=== PATIENT | female | born 1965 | race Caucasian/White ===

== ENCOUNTER 2019-04-22 07:30 | Inpatient (IN) | payer MEDICAID ==
[2019-04-21 16:52] LABS: PRE OP HEMOGLOBIN 12.3 g/dL (12.0-16.0)
[2019-04-21 16:54] LABS: BASOPHILS # (AUTO) 0.1 X10'3 (0-0.2); BASOPHILS % (AUTO) 0.7 % (0-1); EOSINOPHILS # (AUTO) 0.2 X10'3 (0-0.9); EOSINOPHILS % (AUTO) 2.1 % (0-6); LYMPHOCYTES # (AUTO) 1.8 X10'3 (1.1-4.8); LYMPHOCYTES % (AUTO) 23.9 % (21-51); MEAN CORPUSCULAR HEMOGLOBIN 30.3 PG (27.0-31.0); MEAN CORPUSCULAR HGB CONC 33.3 g/dL (33.0-36.5); MEAN CORPUSCULAR VOLUME 91.1 FL (78-98); MEAN PLATELET VOLUME 7.3 FL (7.4-10.4); MONOCYTES # (AUTO) 0.5 X10'3 (0-0.9); MONOCYTES % (AUTO) 7.3 % (2-12); NEUTROPHILS # (AUTO) 4.8 X10'3 (1.8-7.7); PRE OP HEMATOCRIT 37.1 % (35.0-45.0); PRE OP PLATELET COUNT 255 X10'3 (140-440); RED BLOOD COUNT 4.07 X10'6 (4.20-5.60); RED CELL DISTRIBUTION WIDTH 14.6 % (11.5-14.5)
[2019-04-21 17:03] LABS: ALBUMIN 3.9 G/DL (3.4-5.0); ALBUMIN/GLOBULIN RATIO 1.4 (1.1-1.5); ALKALINE PHOSPHATASE 81 IU/L (46-116); BLOOD UREA NITROGEN 16 MG/DL (7-18); BUN/CREATININE RATIO 22.2 (6.6-38.0); CALCIUM 8.9 MG/DL (8.5-10.1); CHLORIDE 103 MMOL/L (99-107); CREATININE 0.72 MG/DL (0.40-0.90); PRE OP ALT 19 U/L (30-65); PRE OP ANION GAP 6 (8-16); PRE OP AST 9 U/L (10-37); PRE OP BILIRUB, TOTAL 0.2 MG/DL (0.0-1.0); PRE OP GLUCOSE 86 MG/DL (70-104); PRE OP POTASSIUM 3.7 MMOL/L (3.4-5.1); PRE OP SODIUM 139 MMOL/L (135-145); TOTAL CARBON DIOXIDE 29.8 MMOL/L (24-32); TOTAL PROTEIN 6.7 G/DL (6.4-8.2); eGFR 84 ML/MIN
[~2019-04-22] VITALS: Ht 167.6 cm; Wt 82.6 kg
[~2019-04-22 07:30] MED LIST: IBUP-1986 PO; OXYC-511 PO; PAIN CREAM TOP
[2019-04-28] MEDS ORDERED: LORA10TA7 PO (12:30)
[2019-04-29] VITALS (20 sets, daily range): BP systolic 117–146; BP diastolic 69–89
[2019-04-29] MEDS ORDERED: LIDOcaine 1% (10mg/ml) 2ml vial ONE (05:50)
[2019-04-29] MEDS ORDERED: ketorolac trometh. 30mg/ml inj. ONE (06:39)
[2019-04-29] MEDS ORDERED: ROPIVAcaine 0.5% (5mg/ml) 30ml vial ONE ×2 (06:39→07:15)
[2019-04-29] MEDS ORDERED: tetracaine 1% (10mg/ml) pres. free inj. ONE (07:15)
[2019-04-29] MEDS ORDERED: cloNIDine hcl/PF 100mcg/ml inj ONE (07:15)
[2019-04-29] MEDS ORDERED: fentaNYL/PF 50MCG/1 ML 2ML syringe ONE (07:17)
[2019-04-29] MEDS ORDERED: MIDAZolam 1mg/ml 10ml vial ONE (07:17)
[2019-04-29] MEDS ORDERED: ringers solution, lacted 1,000 ML IV SCH ×2 (08:23→11:30)
[2019-04-29] MEDS ORDERED: ondansetron/PF 4mg/2ml inj IV PRN ×2 (08:25→09:40)
[2019-04-29] MEDS ORDERED: meperidine/PF 25mg/ml syringe IV PRN ×3 (08:25)
[2019-04-29] MEDS ORDERED: morphine 4 MG/ML inj SYRINge IV PRN ×2 (08:25)
[2019-04-29] MEDS ORDERED: proCHLORperazine 10 MG/2 ml inj IV PRN (08:25)
[2019-04-29] MEDS ORDERED: propofol inj 20 ML IV ONE ×2 (09:24)
[2019-04-29] MEDS ORDERED: magnesium hydroxide 30ml (MOM) UD suspension PO PRN (09:40)
[2019-04-29] MEDS ORDERED: diphenhydrAMINE 25mg capsule PO PRN ×2 (09:40)
[2019-04-29] MEDS ORDERED: bisacodyl 10mg suppository rectal RC PRN (09:40)
[2019-04-29] MEDS ORDERED: oxyCODONE IR 5mg (immed. release) tablet PO PRN (09:40)
[2019-04-29] MEDS ORDERED: acetaminophen 325mg tablet PO PRN (09:40)
--- NOTE | 2019-04-29 09:55 | NUR ---
Received from OR via bed, accompanied by Anesthesiologist. Report received. Initial physical assessment done and recorded.
[2019-04-29] MEDS: ROPIVAcaine 0.2%/PF PAIN PUMP 400 ML IJ SCH (10:38)
--- NOTE | 2019-04-29 11:00 | NUR ---
Discharge criteria met, report to receiving floor. Transferred to room in stable condition.
[2019-04-29] MEDS ORDERED: tranexamic acid inj. 800 MG in normal saline 100ml IV soln 100 ML IV ONE ×2 (11:30→12:30)
[2019-04-29] MEDS ORDERED: famotidine 20mg tablet PO ONE (11:30)
[2019-04-29] MEDS ORDERED: VANCOMYCIN INJ 1000 MG in NORMAL SALINE 250ml IV.SOLN IV ONE (11:30)
[2019-04-29] MEDS ORDERED: cefazolin/dext.iso 2gm/100 ML IV ONE (11:30)
[2019-04-29] MEDS: ketorolac tromethamine 15mg/ml inj. IV SCH ×2 (14:46→20:32)
[2019-04-29] MEDS: HYDROmorphone 1 mg/ml syringe IV PRN ×3 (15:10→23:16)
--- NOTE | 2019-04-29 15:34 | NUR ---
Report to Rebecca MILLS
--- NOTE | 2019-04-29 16:24 | NUR ---
WAS RETURNING DILAUDID ON HER ROOMMATE AND RETURNED IT ON HER INSTEAD. SHE DID GET THE DILAUDID.
--- NOTE | 2019-04-29 16:30 | NUR ---
Patient in room ORTHO 4022. I have received report from LINA BARBER and had the opportunity to ask questions and assume patient care.
[2019-04-29] MEDS: ceFAZolin 1GM/D5W- ADD-VANTAGE 50 ML IV SCH (17:18)
[2019-04-29] MEDS: oxyCODONE IR 5mg (immed. release) tablet PO PRN ×2 (17:19→21:22)
[2019-04-29] MEDS: potassium cl 20mEq in 1/2 NS 1,000 ML IV SCH ×2 (17:39→19:16)
[2019-04-29] MEDS ORDERED: vancomycin/NS 1 GM ADD-VANTAGE 250 ML IV SCH (20:00)
[2019-04-29] MEDS: sennosides 8.6mg tablet PO SCH (20:31)
[2019-04-29] MEDS: acetaminophen 325mg tablet PO SCH (20:32)
[2019-04-30] MEDS: ketorolac tromethamine 15mg/ml inj. IV SCH ×2 (01:25→07:48)
[2019-04-30] MEDS: ceFAZolin 1GM/D5W- ADD-VANTAGE 50 ML IV SCH (01:25)
[2019-04-30] MEDS: acetaminophen 325mg tablet PO SCH ×4 (01:26→20:01)
[2019-04-30] MEDS: oxyCODONE IR 5mg (immed. release) tablet PO PRN ×6 (01:26→22:20)
[2019-04-30] MEDS: potassium cl 20mEq in 1/2 NS 1,000 ML IV SCH ×2 (01:37→09:39)
[2019-04-30 01:52] VITALS: BP 111/72
[2019-04-30] MEDS: HYDROmorphone 1 mg/ml syringe IV PRN ×5 (04:15→20:02)
[2019-04-30 06:00] VITALS: BP 128/73
[2019-04-30 06:02] LABS: BASOPHILS % (AUTO) 0.3 % (0-1); EOSINOPHILS % (AUTO) 0 % (0-6); HEMATOCRIT 32.6 % (35.0-45.0); HEMOGLOBIN 10.8 g/dl (12.0-16.0); LYMPHOCYTES # (AUTO) 0.7 X10'3 (1.1-4.8); LYMPHOCYTES % (AUTO) 6.9 % (21-51); MEAN CORPUSCULAR HEMOGLOBIN 30.2 PG (27.0-31.0); MEAN CORPUSCULAR HGB CONC 33.2 g/dL (33.0-36.5); MEAN CORPUSCULAR VOLUME 90.9 FL (78-98); MEAN PLATELET VOLUME 7.4 FL (7.4-10.4); MONOCYTES # (AUTO) 0.7 X10'3 (0-0.9); MONOCYTES % (AUTO) 6.9 % (2-12); NEUTROPHILS # (AUTO) 8.8 X10'3 (1.8-7.7); NEUTROPHILS % (AUTO) 85.9 % (42-75); PLATELET COUNT 217 X10'3 (140-440); RED BLOOD COUNT 3.59 X10'6 (4.20-5.60); RED CELL DISTRIBUTION WIDTH 13.8 % (11.5-14.5); WHITE BLOOD COUNT 10.3 X10'3 (4.5-11.0)
--- NOTE | 2019-04-30 06:05 | NUR ---
Patient in room ORTHO 4022. I have received report from GONZÁLEZ MILLS and had the opportunity to ask questions and assume patient care.
--- NOTE | 2019-04-30 06:24 | NUR ---
Problems reprioritized. Patient report given, questions answered & plan of care reviewed with liza Allen.
[2019-04-30 07:03] LABS: ANION GAP 6 (8-16); CHLORIDE 105 MMOL/L (99-107); POTASSIUM 4.1 MMOL/L (3.5-5.1); SODIUM 138 MMOL/L (135-145); TOTAL CARBON DIOXIDE 26.9 MMOL/L (24-32)
[2019-04-30] MEDS: aspirin 325mg tablet PO SCH (07:47)
[2019-04-30] MEDS: loratadine 10mg tablet PO SCH (07:48)
[2019-04-30 10:00] VITALS: BP 110/69
[2019-04-30 14:00] VITALS: BP 126/60
--- NOTE | 2019-04-30 16:01 | NUR ---
Joint replacement consult: Pt seen by ROBBI for written/verbal high protein ed. RD reviewed high protein needs for wound healing, immune strength, high protein foods, and protein supplementation options. RD contact information provided in case of further questions. Pt agreeable to double proteins at meals including extra fish w/ lemon juice, salad salad w/ kittitian dressing at dinner tonight; dietary notified. Will continue to monitor. Addendum: 04/30/19 at [address] Amended: Links added.
[2019-04-30 18:00] VITALS: BP 119/69
--- NOTE | 2019-04-30 18:00 | NUR ---
Problems reprioritized. Patient report given, questions answered & plan of care reviewed with ALIN MILLS.
[2019-04-30] MEDS: celeCOXIB 100mg capsule PO SCH (20:01)
[2019-04-30] MEDS: sennosides 8.6mg tablet PO SCH (20:01)
[2019-04-30 22:00] VITALS: BP 105/61
[2019-05-01] MEDS: HYDROmorphone inj. 0.5 MG/0.5 ML DISP.SYRIN IV PRN ×6 (00:31→22:38)
[2019-05-01] MEDS: acetaminophen 325mg tablet PO SCH ×2 (02:00→07:41)
[2019-05-01] MEDS: oxyCODONE IR 5mg (immed. release) tablet PO PRN ×5 (03:25→19:58)
[2019-05-01 05:33] LABS: BASOPHILS # (AUTO) 0.1 X10'3 (0-0.2); BASOPHILS % (AUTO) 0.8 % (0-1); EOSINOPHILS # (AUTO) 0.1 X10'3 (0-0.9); HEMATOCRIT 29.2 % (35.0-45.0); HEMOGLOBIN 9.9 g/dl (12.0-16.0); LYMPHOCYTES # (AUTO) 1.7 X10'3 (1.1-4.8); LYMPHOCYTES % (AUTO) 25.6 % (21-51); MEAN CORPUSCULAR HEMOGLOBIN 30.7 PG (27.0-31.0); MEAN CORPUSCULAR HGB CONC 33.9 g/dL (33.0-36.5); MEAN CORPUSCULAR VOLUME 90.7 FL (78-98); MEAN PLATELET VOLUME 7.5 FL (7.4-10.4); MONOCYTES # (AUTO) 0.7 X10'3 (0-0.9); MONOCYTES % (AUTO) 10.2 % (2-12); NEUTROPHILS # (AUTO) 4.1 X10'3 (1.8-7.7); NEUTROPHILS % (AUTO) 62.4 % (42-75); PLATELET COUNT 173 X10'3 (140-440); RED BLOOD COUNT 3.21 X10'6 (4.20-5.60); RED CELL DISTRIBUTION WIDTH 14.2 % (11.5-14.5); WHITE BLOOD COUNT 6.6 X10'3 (4.5-11.0)
[2019-05-01 06:00] VITALS: BP 137/74
--- NOTE | 2019-05-01 06:05 | NUR ---
Patient in room ORTHO 4022. I have received report from ALIN MILLS and had the opportunity to ask questions and assume patient care.
[2019-05-01] MEDS: loratadine 10mg tablet PO SCH (07:41)
[2019-05-01] MEDS: celeCOXIB 100mg capsule PO SCH ×2 (07:41→19:58)
[2019-05-01] MEDS: aspirin 325mg tablet PO SCH (07:42)
--- NOTE | 2019-05-01 07:45 | NUR ---
ON-Q PUMP DC'D, TOLERATED WELL.
[2019-05-01] MEDS ORDERED: OXYC-150 PO (08:19)
[2019-05-01] MEDS ORDERED: ASPI-1264 PO (08:19)
[2019-05-01] MEDS: ROPIVAcaine 0.2%/PF PAIN PUMP 400 ML IJ SCH (08:24)
[2019-05-01] MEDS ORDERED: acetaminophen 325mg tablet PO PRN (09:40)
[2019-05-01 10:00] VITALS: BP 122/58
[2019-05-01 18:00] VITALS: BP 130/76
--- NOTE | 2019-05-01 18:10 | NUR ---
Patient in room ORTHO 4022. I have received report from LINA Allen and had the opportunity to ask questions and assume patient care.
--- NOTE | 2019-05-01 18:15 | NUR ---
Problems reprioritized. Patient report given, questions answered & plan of care reviewed with GENEVA MILLS.
[2019-05-01] MEDS: sennosides 8.6mg tablet PO SCH (19:58)
[2019-05-01 22:00] VITALS: BP 136/78
[2019-05-02] MEDS: oxyCODONE IR 5mg (immed. release) tablet PO PRN ×3 (00:42→09:55)
[2019-05-02 06:00] VITALS: BP 135/68
--- NOTE | 2019-05-02 06:15 | NUR ---
Patient in room ORTHO 4022. I have received report from GENEVA MILLS and had the opportunity to ask questions and assume patient care.
--- NOTE | 2019-05-02 06:21 | NUR ---
Problems reprioritized. Patient report given, questions answered & plan of care reviewed with LINA Allen.
[2019-05-02 06:27] LABS: BASOPHILS # (AUTO) 0.1 X10'3 (0-0.2); BASOPHILS % (AUTO) 0.8 % (0-1); EOSINOPHILS # (AUTO) 0.1 X10'3 (0-0.9); EOSINOPHILS % (AUTO) 1.6 % (0-6); HEMATOCRIT 29.9 % (35.0-45.0); HEMOGLOBIN 10.7 g/dl (12.0-16.0); LYMPHOCYTES # (AUTO) 1.4 X10'3 (1.1-4.8); LYMPHOCYTES % (AUTO) 17.6 % (21-51); MEAN CORPUSCULAR HGB CONC 35.6 g/dL (33.0-36.5); MEAN CORPUSCULAR VOLUME 89.7 FL (78-98); MEAN PLATELET VOLUME 7.5 FL (7.4-10.4); MONOCYTES # (AUTO) 0.8 X10'3 (0-0.9); MONOCYTES % (AUTO) 10.3 % (2-12); NEUTROPHILS # (AUTO) 5.5 X10'3 (1.8-7.7); NEUTROPHILS % (AUTO) 69.7 % (42-75); PLATELET COUNT 181 X10'3 (140-440); RED BLOOD COUNT 3.33 X10'6 (4.20-5.60); RED CELL DISTRIBUTION WIDTH 14.3 % (11.5-14.5); WHITE BLOOD COUNT 7.9 X10'3 (4.5-11.0)
[2019-05-02] MEDS: aspirin 325mg tablet PO SCH (07:45)
[2019-05-02] MEDS: celeCOXIB 100mg capsule PO SCH (07:45)
[2019-05-02] MEDS: loratadine 10mg tablet PO SCH (07:45)
[2019-05-02 10:00] VITALS: BP 110/57
--- NOTE | 2019-05-02 11:10 | NUR ---
DISCHARGE HOME SAFELY. ALL BELONGINGS IN POSSESSION. PATIENT VERBALIZES UNDERSTANDING OF DC INSTRUCTIONS.
== END 2019-05-02 11:10 | disposition home health service (06) | DRG 302 ==
LOC: PAS IN 04-29 05:34 → EDSTATUS 04-29 07:30 → ORTHO 4S 04-29 11:05
PROVIDERS: ADMIT Orthopaedic Surgery; ATTEND Orthopaedic Surgery
PROC: 3E0T3BZ Introduction of Anesthetic Agent into Peripheral Nerves and Plexi, Percutaneous Approach (ICD-10-PCS; 2019-04-29)
PROC: 0SRC0J9 Replacement of Right Knee Joint with Synthetic Substitute, Cemented, Open Approach (ICD-10-PCS; principal; 2019-04-29 07:11)
DX: M17.11 Unilateral primary osteoarthritis, right knee (principal); D62 Acute posthemorrhagic anemia; M21.00 Valgus deformity, not elsewhere classified, unspecified site; Z87.11 Personal history of peptic ulcer disease
CPT/HCPCS: 36415; 80051; 80053; 82948; 85025; 87070; 93005; 97110; 97116; 97161; 97530; A6455; A7000; C1713; C1758; C1776; G0378; J0690; J0735; J1170; J1885; J2250; J2704; J2795; J3010; J3370; J3490; J7030; J7120

== ENCOUNTER 2019-06-04 08:00 | Emergency (ER) | payer MEDICAID ==
[~2019-06-04] VITALS: Ht 167.6 cm; Wt 72.0 kg
[~2019-06-04 08:00] MED LIST changes: +LORA10TA7 PO; +OXYC-150 PO
[2019-06-04] MEDS ORDERED: morphine 4 MG/ML inj SYRINge IV PRN (08:25)
[2019-06-04] MEDS ORDERED: ondansetron/PF 4mg/2ml inj IV ONE (08:25)
[2019-06-04] MEDS ORDERED: normal saline 1000ML IV soln IVB ONE (08:25)
[2019-06-04] MEDS ORDERED: metoclopramide 5 mg/ml inj IV ONE (09:00)
--- NOTE | 2019-06-04 09:00 | NUR ---
PT VOMITTED APPROX 150 ML OF BROWNISH RED EMESIS, GASTROCULT POSITIVE, DR JOHNSON INFORMED OF VOMITTING AND POSITIVE GASTROCULT, PT STATES SHE HAS TO GO TO BATHROOM, GAVE SAMPLE CUP, SPOUSE ASSISTED PT TO BATHROOM.
[2019-06-04 09:06] LABS: BASOPHILS # (AUTO) 0.1 X10'3 (0-0.2); BASOPHILS % (AUTO) 0.5 % (0-1); EOSINOPHILS % (AUTO) 0.2 % (0-6); HEMATOCRIT 37.3 % (35.0-45.0); HEMOGLOBIN 12.3 g/dl (12.0-16.0); LYMPHOCYTES # (AUTO) 0.9 X10'3 (1.1-4.8); LYMPHOCYTES % (AUTO) 8.2 % (21-51); MEAN CORPUSCULAR HEMOGLOBIN 29.5 PG (27.0-31.0); MEAN CORPUSCULAR HGB CONC 33.1 g/dL (33.0-36.5); MEAN CORPUSCULAR VOLUME 89.2 FL (78-98); MEAN PLATELET VOLUME 6.9 FL (7.4-10.4); MONOCYTES # (AUTO) 0.2 X10'3 (0-0.9); MONOCYTES % (AUTO) 1.6 % (2-12); NEUTROPHILS % (AUTO) 89.5 % (42-75); PLATELET COUNT 286 X10'3 (140-440); RED BLOOD COUNT 4.18 X10'6 (4.20-5.60); RED CELL DISTRIBUTION WIDTH 13.6 % (11.5-14.5); WHITE BLOOD COUNT 11.2 X10'3 (4.5-11.0)
[2019-06-04 09:08] LABS: ALANINE AMINOTRANSFERASE 23 U/L (12-78); ALBUMIN/GLOBULIN RATIO 1.1 (1.1-1.5); ALKALINE PHOSPHATASE 92 IU/L (46-116); ANION GAP 11 (8-16); ASPARTATE AMINO TRANSFERASE 8 U/L (10-37); BILIRUBIN,TOTAL 0.5 MG/DL (0.1-1.0); BLOOD UREA NITROGEN 11 MG/DL (7-18); BUN/CREATININE RATIO 19.6 (6.6-38.0); CALCIUM 9.3 MG/DL (8.5-10.1); CHLORIDE 97 MMOL/L (99-107); CREATININE 0.56 MG/DL (0.40-0.90); GLUCOSE 134 MG/DL (70-104); LIPASE 69 U/L (73-393); POTASSIUM 3.5 MMOL/L (3.5-5.1); SODIUM 135 MMOL/L (135-145); TOTAL CARBON DIOXIDE 27.2 MMOL/L (24-32); TOTAL PROTEIN 7.6 G/DL (6.4-8.2); eGFR > 90 ML/MIN
--- NOTE | 2019-06-04 09:14 | NUR ---
PT BACK FROM BATHROOM AND THEN TAKED TO CT BY CLOTHING PRESSER PER ORDERS, SAMPLE SENT TO LAB.
[2019-06-04 09:28] LABS: URINE HCG NEGATIVE (NEG)
[2019-06-04 09:47] LABS: CLARITY,URINE CLEAR (Clear); COLOR,URINE YELLOW (Yellow); GLUCOSE, URINE NEGATIVE (Neg); KETONES,URINE 15 mg/dl (Neg); LEUKOCYTE ESTERASE ,URINE NEGATIVE (Neg); NITRITES, URINE POSITIVE (Neg); OCCULT BLOOD,URINE SMALL (Neg); PH,URINE 7.5 (4.8-8.0); PROTEIN,URINE NEGATIVE (Neg); UROBILINOGEN,URINE 0.2 E.U/dL (0.2-1.0)
[2019-06-04 10:01] LABS: UA COLLECTION TYPE CLN CATCH MIDSTREAM
[2019-06-04 10:03] LABS: BACTERIA,URINE 2+ /HPF (Neg); SQUAMOUS EPITHELIAL CELL,UR FEW /LPF (FEW); WBC,URINE 0-4 /HPF (0-4)
[2019-06-04] MEDS ORDERED: SULF1TAB49 PO (10:29)
[2019-06-04] MEDS ORDERED: CefTRIAXone/D5W-Rocephin 1gm 50 ML IV ONE (10:30)
[2019-06-04] MEDS ORDERED: HYDR-4383 PO (10:39)
[2019-06-04] MEDS ORDERED: ONDA4TAB6 PO (10:39)
[2019-06-04] MEDS ORDERED: morphine 4 MG/ML inj SYRINge IV ONE (10:40)
[2019-06-04 11:52] VITALS: BP 142/81
[2019-06-04 16:17] LABS: GASTRIC OCCULT BLOOD POSITIVE (Neg)
== END 2019-06-04 11:54 | disposition home or self-care (01) ==
LOC: ER 08:01
DX: N39.0 Urinary tract infection, site not specified (principal); R11.2 Nausea with vomiting, unspecified; R10.84 Generalized abdominal pain; Z98.890 Other specified postprocedural states; Z90.710 Acquired absence of both cervix and uterus; Z79.899 Other long term (current) drug therapy
CPT/HCPCS: 36415; 74176; 80053; 81001; 81025; 82271; 83690; 85025; 87077; 87088; 87186; 96361; 96365; 96375; 96376; 99284; J0696; J2270; J2405; J2765; J7030

== ENCOUNTER 2019-06-11 17:15 | Emergency (ER) | payer MEDICAID ==
[~2019-06-11] VITALS: Ht 167.6 cm; Wt 85.0 kg
[~2019-06-11 17:15] MED LIST changes: +HYDR-4383 PO; +ONDA4TAB6 PO; +SULF1TAB49 PO
[2019-06-11 17:47] LABS: BASOPHILS # (AUTO) 0.1 X10'3 (0-0.2); BASOPHILS % (AUTO) 0.7 % (0-1); EOSINOPHILS # (AUTO) 0.2 X10'3 (0-0.9); EOSINOPHILS % (AUTO) 1.8 % (0-6); HEMATOCRIT 41.5 % (35.0-45.0); HEMOGLOBIN 13.8 g/dl (12.0-16.0); LYMPHOCYTES # (AUTO) 0.8 X10'3 (1.1-4.8); LYMPHOCYTES % (AUTO) 8.9 % (21-51); MEAN CORPUSCULAR HGB CONC 33.2 g/dL (33.0-36.5); MEAN CORPUSCULAR VOLUME 90.3 FL (78-98); MEAN PLATELET VOLUME 6.9 FL (7.4-10.4); MONOCYTES # (AUTO) 0.3 X10'3 (0-0.9); MONOCYTES % (AUTO) 2.9 % (2-12); NEUTROPHILS # (AUTO) 7.8 X10'3 (1.8-7.7); NEUTROPHILS % (AUTO) 85.7 % (42-75); PLATELET COUNT 375 X10'3 (140-440); RED BLOOD COUNT 4.59 X10'6 (4.20-5.60); RED CELL DISTRIBUTION WIDTH 13.6 % (11.5-14.5)
[2019-06-11 18:01] LABS: ALANINE AMINOTRANSFERASE 22 U/L (12-78); ALBUMIN 4.3 G/DL (3.4-5.0); ALBUMIN/GLOBULIN RATIO 1.2 (1.1-1.5); ALKALINE PHOSPHATASE 102 IU/L (46-116); ANION GAP 12 (8-16); ASPARTATE AMINO TRANSFERASE 13 U/L (10-37); BILIRUBIN,TOTAL 0.4 MG/DL (0.1-1.0); BLOOD UREA NITROGEN 9 MG/DL (7-18); BUN/CREATININE RATIO 13.4 (6.6-38.0); CHLORIDE 102 MMOL/L (99-107); CREATININE 0.67 MG/DL (0.40-0.90); GLUCOSE 133 MG/DL (70-104); LIPASE 240 U/L (73-393); SODIUM 137 MMOL/L (135-145); TOTAL CARBON DIOXIDE 22.6 MMOL/L (24-32); eGFR > 90 ML/MIN
--- NOTE | 2019-06-11 18:01 | NUR ---
BROWN EMESIS BAG 200CC AT BEDSIDE.
[2019-06-11 18:14] LABS: URINE HCG NEGATIVE (NEG)
[2019-06-11 18:17] LABS: GLUCOSE, URINE NEGATIVE (Neg); KETONES,URINE 15 mg/dl (Neg); LEUKOCYTE ESTERASE ,URINE NEGATIVE (Neg); NITRITES, URINE NEGATIVE (Neg); OCCULT BLOOD,URINE TRACE-INTACT (Neg); PH,URINE 5.5 (4.8-8.0); PROTEIN,URINE TRACE mg/dl (Neg); UROBILINOGEN,URINE 0.2 E.U/dL (0.2-1.0)
[2019-06-11 18:18] LABS: UA COLLECTION TYPE CLN CATCH MIDSTREAM
[2019-06-11 18:19] LABS: CLARITY,URINE CLEAR (Clear); COLOR,URINE DARK YELLOW (Yellow)
[2019-06-11 18:24] LABS: BACTERIA,URINE NONE SEEN /HPF (Neg); SQUAMOUS EPITHELIAL CELL,UR FEW /LPF (FEW); WBC,URINE 0-4 /HPF (0-4)
[2019-06-11] MEDS ORDERED: LORazepam 2 mg/ml vial IV ONE (18:50)
[2019-06-11] MEDS ORDERED: metoclopramide 5 mg/ml inj IV ONE (18:50)
[2019-06-11] MEDS ORDERED: morphine 4 MG/ML inj SYRINge IV ONE (18:50)
--- NOTE | 2019-06-11 19:00 | NUR ---
This patient is awake and well oriented. She complains of being very tired. Patient intermittently sleeps. Patient up to bathroom, a small bowel movement, normal in color per . Patient returns to sleep once in room.
--- NOTE | 2019-06-11 19:39 | NUR ---
Patient to CT for an ABD/Pelvis with no contrast. Tech is transporting.
--- NOTE | 2019-06-11 20:47 | NUR ---
Patient sleeping. Awaiting CT results. is at bedside.
[2019-06-11] MEDS ORDERED: famotidine 20mg tablet PO ONE (21:10)
[2019-06-11] MEDS ORDERED: HYDROcodone/acetaminophen 10/325mg tab PO ONE (21:10)
[2019-06-11] MEDS ORDERED: pantoprazole 40 MG vial IV ONE (21:10)
[2019-06-11] MEDS ORDERED: ondansetron/PF 4mg/2ml inj IV ONE (21:10)
[2019-06-11] MEDS ORDERED: HYDR-4353 PO (21:22)
[2019-06-11] MEDS ORDERED: AMOX-580 PO (21:22)
[2019-06-11] MEDS ORDERED: ONDA8TAB6 PO (21:22)
[2019-06-11] MEDS ORDERED: ESOMEPRAZOLE 40 MG VIAL IV ONE (21:25)
--- NOTE | 2019-06-11 21:56 | NUR ---
RX meds given. IV dc'd cath intact. Instructions reviewed with patient and . Tech takes patient to car in wheelchair. Patient denies nausea. Abdominal discomfort is gone. Disch to home.
[2019-06-11 21:57] VITALS: BP 138/74
== END 2019-06-11 22:01 | disposition home or self-care (01) ==
LOC: ER 17:15
DX: K52.9 Noninfective gastroenteritis and colitis, unspecified (principal); K56.7 Ileus, unspecified; F10.99 Alcohol use, unspecified with unspecified alcohol-induced disorder; Z90.710 Acquired absence of both cervix and uterus; Z98.890 Other specified postprocedural states; Z79.899 Other long term (current) drug therapy; Y90.9 Presence of alcohol in blood, level not specified
CPT/HCPCS: 36415; 74176; 80053; 81001; 81025; 83690; 85025; 96374; 96375; 99284; J2060; J2270; J2405; J2765

== ENCOUNTER 2020-04-27 05:44 | Inpatient (IN) | payer MEDICAID ==
[2020-04-20 17:08] LABS: BASOPHILS # (AUTO) 0.1 X10'3 (0-0.2); BASOPHILS % (AUTO) 0.8 % (0-1); EOSINOPHILS # (AUTO) 0.1 X10'3 (0-0.9); EOSINOPHILS % (AUTO) 2.2 % (0-6); LYMPHOCYTES # (AUTO) 1.5 X10'3 (1.1-4.8); LYMPHOCYTES % (AUTO) 23.3 % (21-51); MEAN CORPUSCULAR HEMOGLOBIN 29.7 PG (27.0-31.0); MEAN CORPUSCULAR VOLUME 90.1 FL (78-98); MEAN PLATELET VOLUME 7.1 FL (7.4-10.4); MONOCYTES # (AUTO) 0.5 X10'3 (0-0.9); MONOCYTES % (AUTO) 7.2 % (2-12); NEUTROPHILS # (AUTO) 4.2 X10'3 (1.8-7.7); NEUTROPHILS % (AUTO) 66.5 % (42-75); PRE OP HEMATOCRIT 36.4 % (35.0-45.0); PRE OP PLATELET COUNT 252 X10'3 (140-440); RED BLOOD COUNT 4.04 X10'6 (4.20-5.60)
[2020-04-20 17:14] LABS: ALBUMIN 4.1 G/DL (3.4-5.0); ALBUMIN/GLOBULIN RATIO 1.4 (1.1-1.5); ALKALINE PHOSPHATASE 106 IU/L (46-116); BLOOD UREA NITROGEN 16 MG/DL (7-18); BUN/CREATININE RATIO 27.6 (6.6-38.0); CALCIUM 9.8 MG/DL (8.5-10.1); CHLORIDE 108 MMOL/L (99-107); CREATININE 0.58 MG/DL (0.40-0.90); PRE OP ALT 16 U/L (30-65); PRE OP ANION GAP 6 (8-16); PRE OP AST 14 U/L (10-37); PRE OP BILIRUB, TOTAL 0.2 MG/DL (0.0-1.0); PRE OP GLUCOSE 93 MG/DL (70-104); PRE OP POTASSIUM 3.8 MMOL/L (3.4-5.1); PRE OP SODIUM 144 MMOL/L (135-145); TOTAL CARBON DIOXIDE 29.8 MMOL/L (24-32); eGFR > 90 ML/MIN
[~2020-04-27] VITALS: Ht 167.6 cm; Wt 76.2 kg
[2020-04-27] VITALS (18 sets, daily range): BP systolic 92–130; BP diastolic 59–89
[~2020-04-27 05:44] MED LIST changes: +CYCL5TAB PO; +GABA300C PO; -HYDR-4383 PO; -ONDA4TAB6 PO; -OXYC-150 PO; -PAIN CREAM TOP; +PROM12.512 PO; -SULF1TAB49 PO; +ceFAZolin 2gm in dextrose, iso 50 ML IV ONE; +famotidine 20mg tablet PO ONE; +ringers solution, lacted 1,000 ML IV SCH; +tranexamic acid inj. 760 MG in normal saline 100ml IV soln 100 ML IV ONE; +vancomycin 1,500 MG in NS 500ml IV soln IV ONE
[2020-04-27] MEDS ORDERED: LIDOcaine 1% (10mg/ml) 2ml vial ONE (06:03)
[2020-04-27] MEDS ORDERED: ketorolac trometh. 30mg/ml inj. ONE (07:06)
[2020-04-27] MEDS ORDERED: ROPIVAcaine 0.5% (5mg/ml) 30ml vial ONE (07:06)
[2020-04-27] MEDS ORDERED: tetracaine 1% (10mg/ml) pres. free inj. ONE (08:42)
[2020-04-27] MEDS ORDERED: morphine /PF 1mg/ml 10ml inj. ONE (08:43)
[2020-04-27] MEDS ORDERED: midazolam 2 mg/2 ml injection ONE (08:44)
[2020-04-27] MEDS ORDERED: BUPIVAcaine/dex-water/PF 7.5 mg/ml 2ml ampul ONE (09:00)
[2020-04-27] MEDS ORDERED: propofol inj 20 ML IV ONE ×4 (09:25→11:23)
[2020-04-27] MEDS ORDERED: naloxone 2mg/2ml inj 2 MG in normal saline 500ml IV soln 500 ML IV PRN (10:14)
[2020-04-27] MEDS ORDERED: ringers solution, lacted 1,000 ML IV SCH (10:14)
[2020-04-27] MEDS ORDERED: ROPIVAcaine 0.2% (10 MG/5 ML) BOLUS INJECTION ADDCANAL PRN (10:15)
[2020-04-27] MEDS ORDERED: meperidine/PF 25mg/ml syringe IV PRN ×3 (10:15)
[2020-04-27] MEDS ORDERED: morphine 4 MG/ML inj SYRINge IV PRN (10:15)
[2020-04-27] MEDS ORDERED: morphine 2 MG/ML inj. syringe IV PRN (10:15)
[2020-04-27] MEDS ORDERED: proCHLORperazine 10 MG/2 ml inj IV PRN (10:15)
[2020-04-27] MEDS ORDERED: diphenhydrAMINE 50 mg/ml inj IV PRN (10:15)
[2020-04-27] MEDS ORDERED: ondansetron/PF 4mg/2ml inj IV PRN ×3 (10:15→12:05)
[2020-04-27] MEDS ORDERED: acetaminophen 1,000mg/100ml IV 100 ML IV PRN (10:15)
[2020-04-27] MEDS ORDERED: 0.9 % SODIUM CHLORIDE 10 ML VIAL ONE ×2 (10:27)
[2020-04-27] MEDS ORDERED: ePHEDrine 50MG/ML INJ. ONE (10:27)
[2020-04-27] MEDS ORDERED: phenylephrine 10mg/ml inj. ONE (10:27)
[2020-04-27] MEDS ORDERED: ROPIVAcaine 0.2%/PF PUMP/bolus 550 ML ADDCANAL SCH (11:30)
--- NOTE | 2020-04-27 12:00 | NUR ---
PATIENT ARRIVED TO [facility] VIA BED WITH DR EDGAR AT BEDSIDE AND REPORT RECIEVED. PATIENT A&OX4, DENIES PAIN, V/S WNL, NEUROVASCULAR CHECKS INTACT, 18G PIV LUE , DRESSING TO LEFT KNEE EVER DRESSING CDI W/ COLD POWDER PACK AND W/ SCD ON. F/C DRAINING CLEAR YELLOW URINE. SENSATION T-10.
[2020-04-27] MEDS ORDERED: HYDROmorphone 1 mg/ml syringe IV PRN (12:05)
[2020-04-27] MEDS ORDERED: oxyCODONE/APAP 10/325mg tablet PO PRN (12:05)
[2020-04-27] MEDS ORDERED: cyclobenzaprine 10mg tablet PO PRN (12:05)
[2020-04-27] MEDS ORDERED: oxyCODONE IR 5mg (immed. release) tablet PO PRN (12:05)
[2020-04-27] MEDS ORDERED: diphenhydrAMINE 25mg capsule PO PRN (12:05)
[2020-04-27] MEDS ORDERED: PROMETHAZINE HCL PO PRN (12:05)
[2020-04-27] MEDS ORDERED: magnesium hydroxide 30ml (MOM) UD suspension PO PRN (12:05)
[2020-04-27] MEDS ORDERED: acetaminophen 325mg tablet PO PRN (12:05)
[2020-04-27] MEDS ORDERED: HYDROmorphone inj. 0.5 MG/0.5 ML DISP.SYRIN IV PRN (12:05)
[2020-04-27] MEDS ORDERED: bisacodyl 10mg suppository rectal RC PRN (12:05)
--- NOTE | 2020-04-27 12:40 | NUR ---
Breaking primary RN Elizabeth- Received report from LINA Rabago from recovery. Awaiting patient arrival to room 354a.
--- NOTE | 2020-04-27 12:46 | NUR ---
received report from liza hoover who received report from liza braga in recovery
--- NOTE | 2020-04-27 12:48 | NUR ---
Problems reprioritized. Patient report given, questions answered & plan of care reviewed with LINA Johnson .
[2020-04-27] MEDS ORDERED: non-formulary drug (Ibuprofen 1 TAB) PO SCH (13:00)
--- NOTE | 2020-04-27 13:10 | NUR ---
ATIENT A&OX4, DENIES PAIN, V/S WNL, NEUROVASCULAR CHECKS INTACT, 18G PIV LUE , DRESSING TO LEFT KNEE EVER DRESSING CDI W/ COLD POWDER PACK AND W/ SCD ON. F/C DRAINING CLEAR YELLOW URINE. SENSATION T-11. PATIENT TAKEN TO 354A WITH ALL BELONGINGS AND HOOKED UP TO MONITORS IN ROOM AND REPORT GIVEN TO MARCELA MILLS WHO HAS TAKEN OVER PATIENT CARE.
[2020-04-27] MEDS: diphenhydrAMINE 25mg capsule PO PRN ×2 (13:29→20:15)
[2020-04-27] MEDS: acetaminophen 325mg tablet PO SCH ×2 (13:30→20:04)
[2020-04-27] MEDS ORDERED: tranexamic acid inj. 800 MG in normal saline 100ml IV soln 100 ML IV ONE (15:00)
[2020-04-27] MEDS: gabapentin 300mg capsule PO SCH (16:18)
[2020-04-27] MEDS: oxyCODONE IR 5mg (immed. release) tablet PO PRN ×2 (16:24→20:16)
[2020-04-27] MEDS: ceFAZolin 1GM/D5W- ADD-VANTAGE 50 ML IV SCH (17:24)
--- NOTE | 2020-04-27 18:00 | NUR ---
Patient in room ORTHO 4012. I have received report from Elizabeth and had the opportunity to ask questions and assume patient care.
--- NOTE | 2020-04-27 18:32 | NUR ---
gave report to liza perez
[2020-04-27] MEDS: potassium cl 20mEq in 1/2 NS 1,000 ML IV SCH (19:57)
[2020-04-27] MEDS ORDERED: vancomycin/NS 1 GM ADD-VANTAGE 250 ML IV SCH (20:00)
[2020-04-27] MEDS ORDERED: sennosides 8.6mg tablet PO SCH (21:00)
--- NOTE | 2020-04-28 01:00 | NUR ---
Problems reprioritized. Patient report given, questions answered & plan of care reviewed with Linda Patient moved up to 4th Floor.
[2020-04-28 01:30] VITALS: BP 101/62
[2020-04-28] MEDS: oxyCODONE IR 5mg (immed. release) tablet PO PRN ×5 (01:33→17:40)
[2020-04-28] MEDS: acetaminophen 325mg tablet PO SCH ×2 (01:46→08:40)
[2020-04-28] MEDS: gabapentin 300mg capsule PO SCH ×3 (01:46→16:32)
[2020-04-28] MEDS: ceFAZolin 1GM/D5W- ADD-VANTAGE 50 ML IV SCH (01:52)
[2020-04-28] MEDS: potassium cl 20mEq in 1/2 NS 1,000 ML IV SCH ×3 (05:03→12:05)
[2020-04-28 05:07] LABS: BASOPHILS % (AUTO) 0.6 % (0-1); EOSINOPHILS # (AUTO) 0.2 X10'3 (0-0.9); EOSINOPHILS % (AUTO) 3.1 % (0-6); HEMATOCRIT 28.4 % (35.0-45.0); HEMOGLOBIN 9.3 g/dl (12.0-16.0); LYMPHOCYTES % (AUTO) 17.2 % (21-51); MEAN CORPUSCULAR HEMOGLOBIN 29.8 PG (27.0-31.0); MEAN CORPUSCULAR HGB CONC 32.7 g/dL (33.0-36.5); MEAN PLATELET VOLUME 7.1 FL (7.4-10.4); MONOCYTES # (AUTO) 0.6 X10'3 (0-0.9); MONOCYTES % (AUTO) 9.8 % (2-12); NEUTROPHILS # (AUTO) 3.9 X10'3 (1.8-7.7); NEUTROPHILS % (AUTO) 69.3 % (42-75); PLATELET COUNT 187 X10'3 (140-440); RED BLOOD COUNT 3.11 X10'6 (4.20-5.60); RED CELL DISTRIBUTION WIDTH 14.4 % (11.5-14.5); WHITE BLOOD COUNT 5.7 X10'3 (4.5-11.0)
[2020-04-28 05:22] LABS: ANION GAP 4 (8-16); CHLORIDE 107 MMOL/L (99-107); POTASSIUM 4.3 MMOL/L (3.5-5.1); SODIUM 140 MMOL/L (135-145); TOTAL CARBON DIOXIDE 28.9 MMOL/L (24-32)
[2020-04-28 06:00] VITALS: BP 134/71
[2020-04-28] MEDS ORDERED: loratadine 10mg tablet PO SCH (08:00)
[2020-04-28] MEDS ORDERED: aspirin 325mg tablet PO SCH (08:30)
[2020-04-28] MEDS ORDERED: ONQPUMP ADDCANAL (10:38)
[2020-04-28] MEDS ORDERED: ASPI-1 PO (10:38)
[2020-04-28 11:00] VITALS: BP 92/52
--- NOTE | 2020-04-28 12:47 | NUR ---
Joint replacement consult: Pt sleeping unable to wake during RD visit; written high protein ed w/ RD contact information left at pt bedside. Addendum: 04/28/20 at [address] Amended: Links added.
[2020-04-29] MEDS ORDERED: acetaminophen 325mg tablet PO PRN (12:05)
== END 2020-04-28 17:51 | disposition home health service (06) | DRG 302 ==
LOC: PAS 05:44 → EDSTATUS 07:30 → SUR 3N 12:05 → ORTHO 4S 04-28 01:22
PROVIDERS: ADMIT Orthopaedic Surgery; ATTEND Orthopaedic Surgery
PROC: 3E0T3BZ Introduction of Anesthetic Agent into Peripheral Nerves and Plexi, Percutaneous Approach (ICD-10-PCS; 2020-04-27)
PROC: 8E0YXBZ Computer Assisted Procedure of Lower Extremity (ICD-10-PCS; 2020-04-27)
PROC: 8E0Y0CZ Robotic Assisted Procedure of Lower Extremity, Open Approach (ICD-10-PCS; 2020-04-27)
PROC: 0SRD069 Replacement of Left Knee Joint with Oxidized Zirconium on Polyethylene Synthetic Substitute, Cemented, Open Approach (ICD-10-PCS; principal; 2020-04-27 09:00)
DX: M17.12 Unilateral primary osteoarthritis, left knee (principal); D62 Acute posthemorrhagic anemia; M21.062 Valgus deformity, not elsewhere classified, left knee; Z87.11 Personal history of peptic ulcer disease; Z79.899 Other long term (current) drug therapy
CPT/HCPCS: 36415; 80051; 80053; 82948; 85025; 87081; 97110; 97162; 97530; A4215; A6454; A7000; C1713; C1758; C1776; G0378; J0690; J1885; J2001; J2250; J2270; J2370; J2405; J2704; J2795; J3370; J3480; J3490; J7040; J7120; Q0163

== ENCOUNTER 2022-03-29 10:30 | Inpatient (IN) | payer MEDICAID ==
[2022-03-24 11:17] LABS: BASOPHILS # (AUTO) 0.1 X10'3 (0-0.2); BASOPHILS % (AUTO) 0.7 % (0-1); EOSINOPHILS # (AUTO) 0.2 X10'3 (0-0.9); EOSINOPHILS % (AUTO) 2.9 % (0-6); LYMPHOCYTES # (AUTO) 1.7 X10'3 (1.1-4.8); LYMPHOCYTES % (AUTO) 23.4 % (21-51); MEAN CORPUSCULAR HEMOGLOBIN 28.8 PG (27.0-31.0); MEAN CORPUSCULAR HGB CONC 32.7 g/dL (33.0-36.5); MEAN CORPUSCULAR VOLUME 88.3 FL (78-98); MEAN PLATELET VOLUME 7.3 FL (7.4-10.4); MONOCYTES # (AUTO) 0.6 X10'3 (0-0.9); MONOCYTES % (AUTO) 8.8 % (2-12); NEUTROPHILS # (AUTO) 4.5 X10'3 (1.8-7.7); NEUTROPHILS % (AUTO) 64.2 % (42-75); PRE OP HEMATOCRIT 35.8 % (35.0-45.0); PRE OP HEMOGLOBIN 11.7 g/dL (12.0-16.0); PRE OP PLATELET COUNT 264 X10'3 (140-440); RED BLOOD COUNT 4.06 X10'6 (4.20-5.60)
[2022-03-24 11:21] LABS: CLARITY,URINE CLEAR (Clear); COLOR,URINE YELLOW (Yellow); GLUCOSE, URINE NEGATIVE (Neg); KETONES,URINE NEGATIVE (Neg); LEUKOCYTE ESTERASE ,URINE NEGATIVE (Neg); NITRITES, URINE NEGATIVE (Neg); OCCULT BLOOD,URINE NEGATIVE (Neg); PROTEIN,URINE NEGATIVE (Neg); UA COLLECTION TYPE CLN CATCH MIDSTREAM; UROBILINOGEN,URINE 0.2 E.U/dL (0.2-1.0)
[2022-03-24 11:51] LABS: ALBUMIN 3.9 G/DL (3.4-5.0); ALBUMIN/GLOBULIN RATIO 1.1 (1.1-1.5); ALKALINE PHOSPHATASE 94 IU/L (46-116); BLOOD UREA NITROGEN 24 MG/DL (7-18); CHLORIDE 103 MMOL/L (99-107); PRE OP ALT 16 U/L (30-65); PRE OP ANION GAP 8 (8-16); PRE OP AST 13 U/L (10-37); PRE OP BILIRUB, TOTAL 0.3 MG/DL (0.0-1.0); PRE OP GLUCOSE 86 MG/DL (70-104); PRE OP POTASSIUM 4.3 MMOL/L (3.4-5.1); PRE OP SODIUM 137 MMOL/L (135-145); TOTAL CARBON DIOXIDE 25.8 MMOL/L (24-32); TOTAL PROTEIN 7.3 G/DL (6.4-8.2); eGFR 74 ML/MIN
[2022-03-29] VITALS (23 sets, daily range): BP systolic 113–207; BP diastolic 54–116
[~2022-03-29] VITALS: Ht 167.6 cm; Wt 89.8 kg
[~2022-03-29 10:30] MED LIST changes: +BUPIVAcaine 0.5% inj/PF 0 ML ONE; +HYDR-3973 PO; -IBUP-1986 PO; +MULT-1085 PO; +NITR0.4T51 SL; -OXYC-511 PO; +ceFAZolin 1000mg inj ONE; -ceFAZolin 2gm in dextrose, iso 50 ML IV ONE; +ceFAZolin inj. 2,000 MG in dextrose 5%-water 100 ML IV ONE; -tranexamic acid inj. 760 MG in normal saline 100ml IV soln 100 ML IV ONE; -vancomycin 1,500 MG in NS 500ml IV soln IV ONE
[2022-03-29] MEDS ORDERED: ketamine 50mg/5ml syringe ONE (13:47)
[2022-03-29] MEDS ORDERED: midazolam 1 mg/ML 2ml injection ONE (13:47)
[2022-03-29] MEDS ORDERED: BUPIVACAINE liposomal/PF 13.3 MG/ML vial IM ONE (13:48)
[2022-03-29] MEDS ORDERED: BUPIVAcaine 0.5% inj/PF 30 ML ONE (13:48)
[2022-03-29] MEDS ORDERED: fentaNYL /PF 50mcg/ml 5ml ampule ONE (13:49)
[2022-03-29] MEDS ORDERED: neostigmine methylsulfate 1 MG/ML 10ml vial ONE (14:05)
[2022-03-29] MEDS ORDERED: sevoflurane 250ml liquid IH ONE (14:05)
[2022-03-29] MEDS ORDERED: glycopyrrolate 0.2mg/ml inj ONE (14:05)
[2022-03-29] MEDS ORDERED: rocuronium 10mg/ml inj IV ONE (14:49)
[2022-03-29] MEDS ORDERED: ondansetron/PF 4mg/2ml inj ONE (14:50)
[2022-03-29] MEDS ORDERED: LIDOcaine 2% (20mg/ml) 5ml vial ONE (14:50)
[2022-03-29] MEDS ORDERED: propofol inj 20 ML IV ONE (14:50)
[2022-03-29] MEDS ORDERED: dexamethasone sod phosphate 4mg/ml inj. ONE (14:50)
[2022-03-29] MEDS ORDERED: sugammadex 200mg/2ml injection IV ONE (14:50)
[2022-03-29] MEDS ORDERED: ePHEDrine 50MG/ML INJ. ONE (14:50)
[2022-03-29] MEDS ORDERED: acetaminophen 1,000mg/100ml IV 100 ML IV ONE (15:27)
--- NOTE | 2022-03-29 15:37 | NUR ---
Received from OR via BED, accompanied by Anesthesiologist DR GAMEZ and report given by Anesthesiolgist. V/S ELEVATED PATIENT IS QUITE PAINFUL. IV IN LEFT HAND. F/C. LR AT 100 10 LITERS ON MASK. KARTIK CIFUENTES WITH MIKE UNDER BINDER. Addendum: 03/29/22 at 1831 by Candice Moran RN Amended: Links added.
[2022-03-29] MEDS ORDERED: labetalol 5mg/ml 20ml inj. IV PRN (15:45)
[2022-03-29] MEDS ORDERED: ondansetron/PF 4mg/2ml inj IV PRN (15:45)
[2022-03-29] MEDS ORDERED: HYDROmorphone/PF 0.2 MG/ML SYRINGE IV PRN (15:45)
[2022-03-29] MEDS ORDERED: ringers solution, lacted 1,000 ML IV SCH (15:45)
[2022-03-29] MEDS ORDERED: meperidine/PF 25mg/ml syringe IV PRN ×2 (15:45)
[2022-03-29] MEDS: hydrALAZINE 20mg/ml inj. IV PRN ×3 (15:54→17:28)
[2022-03-29] MEDS: HYDROmorphone/PF 0.2 MG/ML SYRINGE IV PRN ×2 (16:12→16:19)
[2022-03-29] MEDS ORDERED: LORazepam 2 mg/ml vial IV STA (16:16)
[2022-03-29] MEDS ORDERED: LORazepam 2 mg/ml vial ONE (16:20)
[2022-03-29] MEDS ORDERED: HYDROMORPHONE IV SCH ×2 (16:30→16:35)
[2022-03-29] MEDS ORDERED: NORMAL SALINE IV SCH ×2 (16:30→16:35)
[2022-03-29] MEDS ORDERED: naloxone 0.4 mg/ml inj IV PRN (16:40)
[2022-03-29] MEDS ORDERED: HYDROmorph/NS 0.2 mg/ml PCA 100 ML IV SCH (17:00)
[2022-03-29] MEDS ORDERED: magnesium 2GM in 50ml NS 50 ML IV PRN (17:35)
[2022-03-29] MEDS ORDERED: acetaminophen 325mg tablet PO PRN (17:35)
[2022-03-29] MEDS ORDERED: magnesium hydroxide 30ml (MOM) UD suspension PO PRN (17:35)
[2022-03-29] MEDS ORDERED: magnesium Cl slow-release 64mg tablet PO PRN (17:35)
[2022-03-29] MEDS ORDERED: POTASSIUM BICARB 20meq eff tab 20 MEQ TABLET.EFF PO PRN ×2 (17:35)
[2022-03-29] MEDS ORDERED: potassium CL 10mEq/100ml bag 100 ML IV PRN (17:35)
[2022-03-29] MEDS ORDERED: LORazepam 2 mg/ml vial IV PRN (17:35)
[2022-03-29] MEDS ORDERED: magnesium 4gm in 100ml NS 100 ML IV PRN (17:35)
[2022-03-29] MEDS ORDERED: hydrALAZINE 20mg/ml inj. IV PRN (17:35)
[2022-03-29] MEDS: HYDROmorph/NS 0.2 mg/ml PCA 100 ML IV SCH ×3 (17:56→23:00)
--- NOTE | 2022-03-29 19:07 | NUR ---
PATIENT MEETS DISCHARGE CRITERIA. VSS. PATIENT PAIN UNDER CONTROL WITH CADD. TOOK PATIENT TO THE FLOOR SET UP V/S LOWERED BED GAVE HER A CALL LIGHT. GAVE REPORT TO LINA LEWIS. Addendum: 03/29/22 at 1920 by Candice Moran RN Amended: Links added.
--- NOTE | 2022-03-29 19:30 | NUR ---
Pt arrived, VS machine attached, moaning in pain reminded pt to use her CAN SLIDER button. at bedside. pt calm eyes closed Addendum: 03/29/22 at 3 by Georgina Purvis RN Amended: Links added.
[2022-03-29] MEDS: docusate sod 100mg capsule PO SCH ×2 (20:00)
[2022-03-29] MEDS: K and/or MAG REPLACEMENT MC SCH (20:00)
[2022-03-29] MEDS: sennosides/docusate sodium tablet PO SCH (20:00)
[2022-03-29] MEDS: normal saline 1000ml 1,000 ML IV SCH (20:27)
[2022-03-30] MEDS: HYDROmorph/NS 0.2 mg/ml PCA 100 ML IV SCH ×5 (01:00→09:00)
--- NOTE | 2022-03-30 01:00 | NUR ---
Pt increasing pain. Pt reminded to use pain button, but has not had relief, Increased CADD per orders to demand dose 0.3 with co-signketty Tabor Rn Addendum: 03/30/22 at 0252 by Georgina Purvis RN Amended: Links added.
[2022-03-30 02:00] VITALS: BP_SYST 148; BP_DIAS 75; BP_DIAS 77
[2022-03-30] MEDS: normal saline 1000ml 1,000 ML IV SCH ×3 (03:35→23:35)
--- NOTE | 2022-03-30 03:49 | NUR ---
0.3 Demand Dose for CADD helping as pt has slept, and snoring when nurse does rounds. Addendum: 03/30/22 at 0350 by Georgina Purvis RN Amended: Links added.
[2022-03-30 06:00] VITALS: BP 135/80
[2022-03-30 07:43] LABS: BASOPHILS % (AUTO) 0.3 % (0-1); EOSINOPHILS % (AUTO) 0 % (0-6); HEMATOCRIT 38.8 % (35.0-45.0); HEMOGLOBIN 12.6 g/dl (12.0-16.0); LYMPHOCYTES # (AUTO) 0.6 X10'3 (1.1-4.8); LYMPHOCYTES % (AUTO) 5.2 % (21-51); MEAN CORPUSCULAR HEMOGLOBIN 28.6 PG (27.0-31.0); MEAN CORPUSCULAR HGB CONC 32.5 g/dL (33.0-36.5); MEAN CORPUSCULAR VOLUME 88.1 FL (78-98); MEAN PLATELET VOLUME 7.7 FL (7.4-10.4); MONOCYTES # (AUTO) 0.6 X10'3 (0-0.9); MONOCYTES % (AUTO) 4.9 % (2-12); NEUTROPHILS # (AUTO) 11.2 X10'3 (1.8-7.7); NEUTROPHILS % (AUTO) 89.6 % (42-75); PLATELET COUNT 276 X10'3 (140-440); RED CELL DISTRIBUTION WIDTH 15.2 % (11.5-14.5); WHITE BLOOD COUNT 12.5 X10'3 (4.5-11.0)
[2022-03-30 07:44] LABS: ALBUMIN 3.4 G/DL (3.4-5.0); ANION GAP 6 (8-16); BLOOD UREA NITROGEN 12 MG/DL (7-18); BUN/CREATININE RATIO 15.2 (6.6-38.0); CALCIUM 8.5 MG/DL (8.5-10.1); CHLORIDE 105 MMOL/L (99-107); CREATININE 0.79 MG/DL (0.40-0.90); GLUCOSE 144 MG/DL (70-104); MAGNESIUM 1.8 MG/DL (1.5-2.4); POTASSIUM 4.2 MMOL/L (3.5-5.1); SODIUM 138 MMOL/L (135-145); TOTAL CARBON DIOXIDE 26.8 MMOL/L (24-32); eGFR 75 ML/MIN
[2022-03-30] MEDS: LORazepam 2 mg/ml vial IV PRN (07:54)
[2022-03-30] MEDS: K and/or MAG REPLACEMENT MC SCH ×2 (08:00→20:00)
[2022-03-30] MEDS: docusate sod 100mg capsule PO SCH ×4 (08:00→20:09)
[2022-03-30] MEDS: sennosides/docusate sodium tablet PO SCH ×2 (08:55→20:09)
[2022-03-30] MEDS: enoxaparin 40mg/0.4ml syringe SUBCUT SCH (08:56)
[2022-03-30 10:00] VITALS: BP 162/78
[2022-03-30] MEDS ORDERED: cyclobenzaprine 10mg tablet PO PRN (10:25)
[2022-03-30] MEDS ORDERED: proMETHazine 25mg tablet PO PRN (10:25)
[2022-03-30] MEDS ORDERED: nitroGLYCERIN 0.4mg SUBLingual tab SL PRN (10:25)
[2022-03-30] MEDS ORDERED: morphine 2 MG/ML inj. syringe IV PRN (11:05)
[2022-03-30] MEDS: morphine 4 MG/ML inj SYRINge IV PRN ×3 (11:24→20:14)
[2022-03-30] MEDS ORDERED: PCA WASTE DOCUMENTATION MC SCH (12:15)
[2022-03-30 14:00] VITALS: BP 120/64
[2022-03-30] MEDS: ondansetron/PF 4mg/2ml inj IV PRN (14:29)
[2022-03-30] MEDS: gabapentin 300mg capsule PO SCH (17:03)
[2022-03-30] MEDS: HYDROcodone/acetaminophen 10/325mg tab PO PRN (17:51)
[2022-03-30 18:00] VITALS: BP 142/61
--- NOTE | 2022-03-30 19:06 | NUR ---
Patient in room ORTHO 4015. I have received report from LINA Rodriguez and had the opportunity to ask questions and assume patient care. Patient resting with eyes closed in no apparent distress.
[2022-03-30 22:54] VITALS: BP 128/57
[2022-03-31] MEDS: gabapentin 300mg capsule PO SCH ×4 (00:09→23:38)
[2022-03-31] MEDS: HYDROcodone/acetaminophen 10/325mg tab PO PRN ×2 (00:15→05:50)
[2022-03-31] MEDS: normal saline 1000ml 1,000 ML IV SCH ×3 (01:29→22:21)
[2022-03-31] MEDS: morphine 4 MG/ML inj SYRINge IV PRN (03:14)
[2022-03-31 05:30] VITALS: BP 153/85
--- NOTE | 2022-03-31 05:42 | NUR ---
MESSAGE: [id number] Post op day 2Tumor removal, lysis of adhesions, DR Negro. Patient has a temporal temp of 101.6, Axillary of 100.6, Do you want blood cultures? Also patient has not received any antibiotics since surgery Simone 1200
[2022-03-31] MEDS ORDERED: cefTRIAXone 1g/NS 100ml IVPB 100 ML IV ONE (05:55)
--- NOTE | 2022-03-31 06:41 | NUR ---
Problems reprioritized. Patient report given, questions answered & plan of care reviewed with LINA Clifton.
--- NOTE | 2022-03-31 06:45 | NUR ---
Patient in room ORTHO 4015. I have received report from LINA Nichols and had the opportunity to ask questions and assume patient care.
[2022-03-31 07:14] LABS: BASOPHILS % (AUTO) 0.2 % (0-1); EOSINOPHILS % (AUTO) 0 % (0-6); HEMOGLOBIN 11.6 g/dl (12.0-16.0); LYMPHOCYTES # (AUTO) 0.5 X10'3 (1.1-4.8); LYMPHOCYTES % (AUTO) 10.7 % (21-51); MEAN CORPUSCULAR HEMOGLOBIN 28.4 PG (27.0-31.0); MEAN CORPUSCULAR HGB CONC 32.1 g/dL (33.0-36.5); MEAN CORPUSCULAR VOLUME 88.3 FL (78-98); MEAN PLATELET VOLUME 7.1 FL (7.4-10.4); MONOCYTES # (AUTO) 0.2 X10'3 (0-0.9); MONOCYTES % (AUTO) 4.4 % (2-12); NEUTROPHILS # (AUTO) 3.9 X10'3 (1.8-7.7); NEUTROPHILS % (AUTO) 84.7 % (42-75); PLATELET COUNT 232 X10'3 (140-440); RED BLOOD COUNT 4.08 X10'6 (4.20-5.60); RED CELL DISTRIBUTION WIDTH 15.5 % (11.5-14.5); WHITE BLOOD COUNT 4.6 X10'3 (4.5-11.0)
[2022-03-31] MEDS ORDERED: HYDROmorph/NS 0.2 mg/ml PCA 100 ML IV SCH (07:30)
[2022-03-31] MEDS ORDERED: naloxone 0.4 mg/ml inj IV PRN (07:30)
[2022-03-31 07:38] LABS: ALBUMIN 2.7 G/DL (3.4-5.0); ANION GAP 9 (8-16); BLOOD UREA NITROGEN 11 MG/DL (7-18); BUN/CREATININE RATIO 13.9 (6.6-38.0); CALCIUM 8.4 MG/DL (8.5-10.1); CHLORIDE 106 MMOL/L (99-107); CREATININE 0.79 MG/DL (0.40-0.90); GLUCOSE 136 MG/DL (70-104); MAGNESIUM 1.8 MG/DL (1.5-2.4); POTASSIUM 3.8 MMOL/L (3.5-5.1); SODIUM 137 MMOL/L (135-145); TOTAL CARBON DIOXIDE 22.3 MMOL/L (24-32); eGFR 75 ML/MIN
[2022-03-31 10:00] VITALS: BP 166/100
[2022-03-31] MEDS: PCA WASTE DOCUMENTATION MC SCH (11:21)
[2022-03-31] MEDS: K and/or MAG REPLACEMENT MC SCH ×2 (11:21→19:27)
[2022-03-31] MEDS: loratadine 10mg tablet PO SCH (11:30)
[2022-03-31] MEDS: multivitamins, therapeutics tablet PO SCH (11:30)
[2022-03-31] MEDS: cefTRIAXone 1g/NS 100ml IVPB 100 ML IV SCH (11:30)
[2022-03-31] MEDS: sennosides/docusate sodium tablet PO SCH ×2 (11:30→19:32)
[2022-03-31] MEDS: docusate sod 100mg capsule PO SCH ×2 (11:30→19:32)
[2022-03-31] MEDS: enoxaparin 40mg/0.4ml syringe SUBCUT SCH (11:31)
[2022-03-31] MEDS: HYDROmorph/NS 0.2 mg/ml PCA 100 ML IV SCH ×6 (12:35→23:00)
[2022-03-31] MEDS ORDERED: mag hydrox/Alum hydrox/simeth 30ml oral suspension PO PRN (12:50)
[2022-03-31] MEDS: mag hydrox/Alum hydrox/simeth 30ml oral suspension PO PRN ×2 (12:59→19:31)
[2022-03-31 14:00] VITALS: BP 146/79
[2022-03-31 17:00] VITALS: BP 140/81
--- NOTE | 2022-03-31 18:10 | NUR ---
Problems reprioritized. Patient report given, questions answered & plan of care reviewed with LINA Acevedo.
--- NOTE | 2022-03-31 19:25 | NUR ---
Patient in room ORTHO 4015. I have received report from LINA Clifton and had the opportunity to ask questions and assume patient care.
[2022-03-31] MEDS: ondansetron/PF 4mg/2ml inj IV PRN (20:58)
[2022-03-31 22:00] VITALS: BP 112/64
[2022-04-01] MEDS: HYDROmorph/NS 0.2 mg/ml PCA 100 ML IV SCH ×5 (01:00→09:00)
[2022-04-01] MEDS: metoclopramide 5 mg/ml inj IV PRN ×2 (01:03→12:34)
--- NOTE | 2022-04-01 02:00 | NUR ---
Pt. has been very nauseated and vomited [address] Araujo has been notified ,she gave us a order for Reglan Q 8 PRN.Pt. has been taking a lot of Ice chips and using per pain Pump more often.I made her not to have ice or water and she was able to rest until 0600.We will continue with pt. care.She walked twice last night ,I heard a bowel sounds on my assessment ,she did not passed gas yet.
[2022-04-01 06:00] VITALS: BP 180/92
[2022-04-01 06:22] LABS: BASOPHILS % (AUTO) 0.1 % (0-1); EOSINOPHILS % (AUTO) 0 % (0-6); HEMATOCRIT 32.6 % (35.0-45.0); HEMOGLOBIN 10.9 g/dl (12.0-16.0); LYMPHOCYTES # (AUTO) 0.5 X10'3 (1.1-4.8); LYMPHOCYTES % (AUTO) 6.3 % (21-51); MEAN CORPUSCULAR HEMOGLOBIN 29.3 PG (27.0-31.0); MEAN CORPUSCULAR HGB CONC 33.4 g/dL (33.0-36.5); MEAN CORPUSCULAR VOLUME 87.7 FL (78-98); MEAN PLATELET VOLUME 7.7 FL (7.4-10.4); MONOCYTES # (AUTO) 0.5 X10'3 (0-0.9); MONOCYTES % (AUTO) 6.8 % (2-12); NEUTROPHILS # (AUTO) 6.5 X10'3 (1.8-7.7); NEUTROPHILS % (AUTO) 86.8 % (42-75); PLATELET COUNT 254 X10'3 (140-440); RED BLOOD COUNT 3.72 X10'6 (4.20-5.60); RED CELL DISTRIBUTION WIDTH 15.1 % (11.5-14.5); WHITE BLOOD COUNT 7.5 X10'3 (4.5-11.0)
[2022-04-01 06:35] LABS: ALBUMIN 2.3 G/DL (3.4-5.0); ANION GAP 7 (8-16); BLOOD UREA NITROGEN 14 MG/DL (7-18); BUN/CREATININE RATIO 18.7 (6.6-38.0); CALCIUM 8.7 MG/DL (8.5-10.1); CHLORIDE 102 MMOL/L (99-107); CREATININE 0.75 MG/DL (0.40-0.90); GLUCOSE 130 MG/DL (70-104); MAGNESIUM 2.2 MG/DL (1.5-2.4); POTASSIUM 3.5 MMOL/L (3.5-5.1); SODIUM 137 MMOL/L (135-145); TOTAL CARBON DIOXIDE 27.8 MMOL/L (24-32); eGFR 79 ML/MIN
--- NOTE | 2022-04-01 06:41 | NUR ---
Problems reprioritized. Patient report given, questions answered & plan of care reviewed with LINA Connor.
--- NOTE | 2022-04-01 06:49 | NUR ---
Patient in room ORTHO 4015. I have received report from Kristina MILLS and had the opportunity to ask questions and assume patient care.
[2022-04-01] MEDS: K and/or MAG REPLACEMENT MC SCH ×2 (07:35→20:00)
[2022-04-01] MEDS: ondansetron/PF 4mg/2ml inj IV PRN (07:48)
[2022-04-01] MEDS: enoxaparin 40mg/0.4ml syringe SUBCUT SCH (07:49)
[2022-04-01] MEDS: gabapentin 300mg capsule PO SCH ×3 (08:00→23:52)
[2022-04-01] MEDS: multivitamins, therapeutics tablet PO SCH (08:00)
[2022-04-01] MEDS: cefTRIAXone 1g/NS 100ml IVPB 100 ML IV SCH (08:01)
[2022-04-01 09:51] VITALS: BP 144/90
[2022-04-01] MEDS: loratadine 10mg tablet PO SCH (10:18)
[2022-04-01] MEDS: morphine 4 MG/ML inj SYRINge IV PRN ×4 (10:18→23:54)
[2022-04-01] MEDS: sennosides/docusate sodium tablet PO SCH ×2 (10:19→19:26)
[2022-04-01] MEDS: docusate sod 100mg capsule PO SCH ×2 (10:28→19:26)
--- NOTE | 2022-04-01 10:36 | NUR ---
PAGER ID: [phone] MESSAGE: [phone] re: Trudy Malloy in [id number]. Pt vomiting this am and thinks its the Dilaudid CADD. Would like to discontinue and try the morphine again.
[2022-04-01 15:41] VITALS: BP 147/75
[2022-04-01] MEDS: PCA WASTE DOCUMENTATION MC SCH (16:25)
[2022-04-01] MEDS: normal saline 1000ml 1,000 ML IV SCH (16:33)
[2022-04-01 18:00] VITALS: BP 127/67
--- NOTE | 2022-04-01 18:00 | NUR ---
Patient in room ORTHO 4015. I have received report from LINA Connor and had the opportunity to ask questions and assume patient care.
[2022-04-01] MEDS: oxyCODONE/APAP 10/325mg tablet PO PRN (18:41)
[2022-04-01 22:00] VITALS: BP 125/64
[2022-04-01] MEDS: metoclopramide 5 mg/ml inj IV SCH (22:19)
[2022-04-02] MEDS: normal saline 1000ml 1,000 ML IV SCH ×2 (01:37→12:56)
[2022-04-02] MEDS: oxyCODONE/APAP 10/325mg tablet PO PRN ×4 (01:37→23:57)
[2022-04-02] MEDS: metoclopramide 5 mg/ml inj IV SCH ×4 (02:43→19:30)
[2022-04-02 06:00] VITALS: BP 138/80
--- NOTE | 2022-04-02 06:19 | NUR ---
Problems reprioritized. Patient report given, questions answered & plan of care reviewed with LINA Colin.
--- NOTE | 2022-04-02 07:03 | NUR ---
Patient in room ORTHO 4015A. I have received report from LINA BEAN & JOSE RAFAEL RICHARD and had the opportunity to ask questions and assume patient care.
--- NOTE | 2022-04-02 07:59 | NUR ---
Initial: Pt s/p exploratory laparotomy, lysis of adhesions, and small bowel resection this admit per EMR. Currently NPO/ice chips and pt has nausea and vomiting per documentation. Recommend advancing to Low Fiber diet once medically indicated. [facility] 03/29 receiving routine bowel care. Limited nutrition interventions at this time, will continue to monitor. Recs; 1. Advance to Low fiber diet as medically indicated 2. Monitor need for ONS upon diet advancement 3. Bowel care per MD 4. Weekly wts Addendum: 04/02/22 at [address] Amended: Links added.
[2022-04-02] MEDS: docusate sod 100mg capsule PO SCH ×2 (08:00→19:31)
[2022-04-02] MEDS: sennosides/docusate sodium tablet PO SCH ×2 (08:00→19:31)
[2022-04-02] MEDS: K and/or MAG REPLACEMENT MC SCH ×2 (08:00→20:00)
[2022-04-02] MEDS: enoxaparin 40mg/0.4ml syringe SUBCUT SCH (08:30)
[2022-04-02] MEDS: multivitamins, therapeutics tablet PO SCH (08:31)
[2022-04-02] MEDS: loratadine 10mg tablet PO SCH (08:31)
[2022-04-02] MEDS: gabapentin 300mg capsule PO SCH ×3 (08:31→23:56)
[2022-04-02] MEDS: cefTRIAXone 1g/NS 100ml IVPB 100 ML IV SCH (08:38)
[2022-04-02] MEDS: morphine 4 MG/ML inj SYRINge IV PRN ×4 (08:39→21:30)
[2022-04-02 10:00] VITALS: BP 148/73
[2022-04-02 10:27] LABS: BASOPHILS % (AUTO) 0.2 % (0-1); EOSINOPHILS # (AUTO) 0.2 X10'3 (0-0.9); EOSINOPHILS % (AUTO) 3.1 % (0-6); HEMATOCRIT 27.2 % (35.0-45.0); LYMPHOCYTES # (AUTO) 0.5 X10'3 (1.1-4.8); LYMPHOCYTES % (AUTO) 7.6 % (21-51); MEAN CORPUSCULAR HEMOGLOBIN 28.9 PG (27.0-31.0); MEAN CORPUSCULAR HGB CONC 33.2 g/dL (33.0-36.5); MEAN PLATELET VOLUME 7.2 FL (7.4-10.4); MONOCYTES # (AUTO) 0.4 X10'3 (0-0.9); MONOCYTES % (AUTO) 6.8 % (2-12); NEUTROPHILS # (AUTO) 5.1 X10'3 (1.8-7.7); NEUTROPHILS % (AUTO) 82.3 % (42-75); PLATELET COUNT 193 X10'3 (140-440); RED BLOOD COUNT 3.12 X10'6 (4.20-5.60); RED CELL DISTRIBUTION WIDTH 14.7 % (11.5-14.5); WHITE BLOOD COUNT 6.1 X10'3 (4.5-11.0)
[2022-04-02 10:31] LABS: ALBUMIN 1.9 G/DL (3.4-5.0); ANION GAP 8 (8-16); BLOOD UREA NITROGEN 15 MG/DL (7-18); BUN/CREATININE RATIO 25.9 (6.6-38.0); CALCIUM 8.1 MG/DL (8.5-10.1); CHLORIDE 104 MMOL/L (99-107); CREATININE 0.58 MG/DL (0.40-0.90); GLUCOSE 100 MG/DL (70-104); MAGNESIUM 2.1 MG/DL (1.5-2.4); SODIUM 139 MMOL/L (135-145); TOTAL CARBON DIOXIDE 26.6 MMOL/L (24-32); eGFR > 90 ML/MIN
[2022-04-02] MEDS ORDERED: potassium CL 10mEq/100ml bag 100 ML IV PRN (12:25)
[2022-04-02] MEDS ORDERED: POTASSIUM BICARB 20meq eff tab 20 MEQ TABLET.EFF PO PRN (12:25)
[2022-04-02] MEDS ORDERED: magnesium Cl slow-release 64mg tablet PO PRN (12:25)
[2022-04-02] MEDS ORDERED: magnesium 4gm in 100ml NS 100 ML IV PRN (12:25)
[2022-04-02] MEDS ORDERED: magnesium 2GM in 50ml NS 50 ML IV PRN (12:25)
[2022-04-02] MEDS: POTASSIUM BICARB 20meq eff tab 20 MEQ TABLET.EFF PO PRN ×3 (13:12→21:50)
--- NOTE | 2022-04-02 17:03 | NUR ---
PATIENT REQUESTED A FREQUENCY CHANGE IN PAIN MEDS, CURRENT: PERCOCET Q6, MORPHINE Q4. DR BINGHAM AWAITING CALL BACK
[2022-04-02 18:00] VITALS: BP 149/72
--- NOTE | 2022-04-02 19:09 | NUR ---
Problems reprioritized. Patient report given, questions answered & plan of care reviewed with LINA TERRY.
[2022-04-02 22:00] VITALS: BP 168/78
[2022-04-03] MEDS: metoclopramide 5 mg/ml inj IV SCH ×4 (02:23→19:27)
[2022-04-03] MEDS: morphine 4 MG/ML inj SYRINge IV PRN ×3 (02:24→14:44)
[2022-04-03] MEDS: oxyCODONE/APAP 10/325mg tablet PO PRN ×5 (05:42→23:01)
--- NOTE | 2022-04-03 05:55 | NUR ---
SHIFT SUMMARY: PATIENT MEDICATED THROUGH THE NIGHT ALTERNATING WITH PERCOCET AND MORPHINE. PAIN CONTROLLED AND WAS ABLE TO GET SOME REST. UP TO VOID, WITH A SMALL BM X1 AND IS PAINFUL WITH MOVEMENT. ENCOURAGED TO AMBULATE FREQUENTLY TODAY. LAB HERE TO CHECK K+ LEVEL AFTER REPLACEMENT LAST NIGHT. REPORT TO EARLY SHIFT RN.
[2022-04-03 06:00] VITALS: BP 136/66
--- NOTE | 2022-04-03 06:39 | NUR ---
Problems reprioritized. Patient report given, questions answered & plan of care reviewed with TYLER MILLS.
[2022-04-03 06:46] LABS: BASOPHILS % (AUTO) 0.4 % (0-1); EOSINOPHILS # (AUTO) 0.3 X10'3 (0-0.9); EOSINOPHILS % (AUTO) 3.6 % (0-6); HEMATOCRIT 27.1 % (35.0-45.0); HEMOGLOBIN 9.1 g/dl (12.0-16.0); LYMPHOCYTES # (AUTO) 0.6 X10'3 (1.1-4.8); LYMPHOCYTES % (AUTO) 8.1 % (21-51); MEAN CORPUSCULAR HEMOGLOBIN 29.1 PG (27.0-31.0); MEAN CORPUSCULAR HGB CONC 33.5 g/dL (33.0-36.5); MEAN CORPUSCULAR VOLUME 86.9 FL (78-98); MEAN PLATELET VOLUME 6.8 FL (7.4-10.4); MONOCYTES # (AUTO) 0.5 X10'3 (0-0.9); MONOCYTES % (AUTO) 5.7 % (2-12); NEUTROPHILS # (AUTO) 6.6 X10'3 (1.8-7.7); NEUTROPHILS % (AUTO) 82.2 % (42-75); PLATELET COUNT 210 X10'3 (140-440); RED BLOOD COUNT 3.12 X10'6 (4.20-5.60); RED CELL DISTRIBUTION WIDTH 14.9 % (11.5-14.5)
[2022-04-03] MEDS: normal saline 1000ml 1,000 ML IV SCH ×2 (06:47→09:34)
[2022-04-03 07:02] LABS: ANION GAP 4 (8-16); BLOOD UREA NITROGEN 10 MG/DL (7-18); BUN/CREATININE RATIO 17.2 (6.6-38.0); CALCIUM 7.8 MG/DL (8.5-10.1); CHLORIDE 103 MMOL/L (99-107); CREATININE 0.58 MG/DL (0.40-0.90); GLUCOSE 127 MG/DL (70-104); POTASSIUM 3.5 MMOL/L (3.5-5.1); SODIUM 135 MMOL/L (135-145); TOTAL CARBON DIOXIDE 28.2 MMOL/L (24-32); eGFR > 90 ML/MIN
[2022-04-03] MEDS: K and/or MAG REPLACEMENT MC SCH ×2 (08:00→20:00)
[2022-04-03] MEDS: loratadine 10mg tablet PO SCH (08:00)
[2022-04-03] MEDS: multivitamins, therapeutics tablet PO SCH (08:00)
[2022-04-03] MEDS: enoxaparin 40mg/0.4ml syringe SUBCUT SCH (09:21)
[2022-04-03] MEDS: sennosides/docusate sodium tablet PO SCH ×2 (09:21→19:27)
[2022-04-03] MEDS: gabapentin 300mg capsule PO SCH ×3 (09:22→19:27)
[2022-04-03] MEDS: cefTRIAXone 1g/NS 100ml IVPB 100 ML IV SCH (09:22)
[2022-04-03] MEDS: docusate sod 100mg capsule PO SCH ×2 (09:22→19:27)
[2022-04-03 10:00] VITALS: BP 163/86
[2022-04-03] MEDS: LORazepam 2 mg/ml vial IV PRN (11:24)
--- NOTE | 2022-04-03 11:28 | NUR ---
The patient is under the impression from the doctor that she wouldn't be in any pain after surgery. This am when rounding with Dr. Anderson I eduicated the patient I would be back in. I then was pulled aside and educated by the charge, her went to the [employer] this am, to complain that her medication wasn't given every two hours. Currently there is Morphine and percocet ordered every four hours prn. I just went in to give the medication on the second hour after the morphine and the patient was sleeping, on a nonverbal scale no pain medication should be given, I gave her percocet and ativan per her request to stay on track.
[2022-04-03 14:00] VITALS: BP 169/100
--- NOTE | 2022-04-03 17:10 | NUR ---
patient sleeping, work to offer pain medication per request.
[2022-04-03 18:00] VITALS: BP 170/92
[2022-04-03 22:00] VITALS: BP 151/84
[2022-04-04] MEDS: metoclopramide 5 mg/ml inj IV SCH ×2 (01:05→08:56)
[2022-04-04] MEDS: oxyCODONE/APAP 10/325mg tablet PO PRN ×2 (05:33→12:32)
[2022-04-04 06:00] VITALS: BP 154/82
[2022-04-04 06:33] LABS: MAGNESIUM 1.5 MG/DL (1.5-2.4); POTASSIUM 3.2 MMOL/L (3.5-5.1)
--- NOTE | 2022-04-04 06:35 | NUR ---
Patient in room ORTHO 4015A. I have received report from LINA MINA and had the opportunity to ask questions and assume patient care.
[2022-04-04] MEDS: docusate sod 100mg capsule PO SCH (08:00)
[2022-04-04] MEDS: K and/or MAG REPLACEMENT MC SCH (08:00)
[2022-04-04] MEDS: sennosides/docusate sodium tablet PO SCH (08:00)
[2022-04-04] MEDS: enoxaparin 40mg/0.4ml syringe SUBCUT SCH (08:56)
[2022-04-04] MEDS: loratadine 10mg tablet PO SCH (08:56)
[2022-04-04] MEDS: gabapentin 300mg capsule PO SCH (08:56)
[2022-04-04] MEDS: multivitamins, therapeutics tablet PO SCH (08:56)
[2022-04-04] MEDS: morphine 4 MG/ML inj SYRINge IV PRN (08:56)
[2022-04-04] MEDS: cefTRIAXone 1g/NS 100ml IVPB 100 ML IV SCH (08:57)
[2022-04-04 10:00] VITALS: BP 132/79
--- NOTE | 2022-04-04 10:59 | NUR ---
I spoke with patient she said Dr. Varma said okay to stay another day. I paged Dr. Anderson regarding the Discharge order, if the patient is staying or going. Waiting to find out.
--- NOTE | 2022-04-04 12:24 | NUR ---
Late note, both MD's said patient can go home. Dr. Anderson said she can use her norco at home for pain control, but patient wants me to ask for percoset anyway. So I did. Other choudhary patient being discharged, Macey case liner said she would help with DC if needed. Patient said she did not have ride and Macey said she can use her partnership ride. But patient eventually said would pick her up.
--- NOTE | 2022-04-04 12:47 | NUR ---
I spoke with patient about discharge. She stated she felt she was being inappropriately discharged and that she needed percoset. I said again that Dr. Anderson wanted her to take the norco and that they do not always prescribe more narcotics because of interactions. also is upset with discharge stating that he has to work tonight and doesn't have time for this. I told LINA Colin that patient stated she was going 5to call Dr. Negro herself if she didn't get percoset. LINA Colin said she would call Dr. Stone as well. Dr Anderson just called and said he would send percoset in.
--- NOTE | 2022-04-04 12:49 | NUR ---
PATIENT STABLE AND APPROPRIATE FOR DISCHARGE, IV REMOVED, EDUCATION GIVEN, NEW MEDS E-SCRIPTED TO PREFERRED PHARMACY, WALKER GIVEN TO PATIENT BY SHONDA, PATIENT TAKEN TO LOBBY BY WHEELCHAIR TO AN AWAITING CAR WHERE WILL TAKE PATIENT HOME
[2022-04-04] MEDS ORDERED: OXYC-150 PO (12:52)
== END 2022-04-04 12:49 | disposition home or self-care (01) | DRG 230 ==
LOC: PAS 10:30 → ORTHO 4S 17:35
PROVIDERS: ADMIT Family Medicine; ATTEND Surgery
PROC: 0DS90ZZ Reposition Duodenum, Open Approach (ICD-10-PCS; 2022-03-29)
PROC: 0DB80ZZ Excision of Small Intestine, Open Approach (ICD-10-PCS; principal; 2022-03-29 14:05)
DX: K56.51 Intestinal adhesions [bands], with partial obstruction (principal); E87.6 Hypokalemia; Z96.652 Presence of left artificial knee joint; F41.9 Anxiety disorder, unspecified; Z20.822 Contact with and (suspected) exposure to COVID-19; R50.9 Fever, unspecified; G89.4 Chronic pain syndrome; I10 Essential (primary) hypertension; Z80.8 Family history of malignant neoplasm of other organs or systems; Z90.710 Acquired absence of both cervix and uterus; Z90.49 Acquired absence of other specified parts of digestive tract
CPT/HCPCS: 36415; 71045; 80048; 80053; 81003; 82948; 83605; 83735; 84132; 84443; 85025; 87040; 87081; 97110; 97116; 97161; 97530; A4618; A7000; C1758; C9290; G0378; J0131; J0360; J0690; J0696; J1100; J1170; J1650; J2060; J2175; J2250; J2270; J2405; J2704; J2710; J2765; J3010; J3490; J7030; J7060; J7120; S0020; U0003; U0005

== ENCOUNTER 2025-06-13 13:24 | Emergency (ER) | payer BC, MEDICAID ==
[~2025-06-13] VITALS: Ht 167.6 cm; Wt 76.4 kg
[~2025-06-13 13:24] MED LIST changes: -BUPIVAcaine 0.5% inj/PF 0 ML ONE; +CYCL-920 PO; -CYCL5TAB PO; +OXYC-150 PO; -ceFAZolin 1000mg inj ONE; -ceFAZolin inj. 2,000 MG in dextrose 5%-water 100 ML IV ONE; -famotidine 20mg tablet PO ONE; -ringers solution, lacted 1,000 ML IV SCH
[2025-06-13 13:26] VITALS: TEMP 98.6
[2025-06-13] MEDS ORDERED: BUPR1FIL3 SL (15:56)
--- NOTE | 2025-06-13 15:58 | Physician Documentation ---
HPI ~ General Chief Complaint: Medication Request Stated Complaint: WITHDRAWALS Time Seen by MD: 15:45 OK to notify your PCP?: Yes Primary Medical Doctor: erika bolaños [facility] Source: patient Mode of Arrival: POV Exam Limitations: no limitations History of Present Illness HPI Comments 30-year-old female presents requesting refill of her Suboxone. She states last dose was and she missed her appointment [facility]. Medication Reconciliation Allergies: Coded Allergies: No Known Allergies (Unverified , 06/13/25) Scheduled Buprenorphine Hcl/Naloxone Hcl (Suboxone 8 Mg-2 Mg Sl Film), 1 STRIP SL BID Gabapentin (Neurontin), 1 CAP PO Q8H, (Reported) Loratadine (Loratadine), 1 TAB PO DAILY, (Reported) Multivitamin (Multi Vitamin Daily), 1 TAB PO DAILY, (Reported) Scheduled PRN Cyclobenzaprine HCl (Cyclobenzaprine HCl), 1 TAB PO TID PRN for muscle spasms, (Reported) Hydrocodone Bit/Acetaminophen (Hydrocodone-Apap 10-325 Tablet), 1 TAB PO Q6H PRN for pain, (Reported) Nitroglycerin SL* (Nitrostat SL*), 1 TAB SL Q5MIN PRN for Chest pain Q5min PRNx3-call MD, (Reported) Oxycodone HCl/Acetaminophen (Percocet 10-325 mg Tablet), 1 TAB PO TID PRN PRN for pain Promethazine Hcl (Phenergan), 1 TAB PO BID PRN for nausea/vomiting, (Reported) Past Medical History Past Medical History: No Pertinent History Past Surgical History: cancer surgery, hysterectomy, orthopedic surgeries Alcohol Use: Occasionally Drug Use: none Lives with: Spouse Lives In: Home Review of Systems All Other Systems at this time: Reviewed and Negative Physical Exam Physical Exam Vital Signs: RN Vital Signs have been reviewed: Yes, Temperature: 98.6, Source: Oral, Heart Rate: 83, Respiratory Rate: 18, BP: 163/94, Pulse Oximetry: 98, Weight: 76.360 Pulse Oximetry Reflects: adequate oxygenation Physical Exam General: Alert, no distress. HEENT: No injection, moist mucous membranes. Neck: Full range of motion. Respiratory: No respiratory distress, equal chest rise and fall. Chest: No accessory muscle use. Cardiovascular: Regular rate and rhythm. Gastrointestinal: Nondistended. Extremities: Normal range of motion, no deformity. Neurologic: Oriented x4. Psychiatric: Normal mood and affect. Skin: Normal color, warm and dry. Progress Results/Orders Results/Orders Completed Orders - DEIRDRE RIVER Buprenorphine/Naloxone Sl Film (Suboxone (06/13/25 15:59) Medications Received in ER Medications (Trade) Dose Ordered Sig/Laura Route PRN Reason Start Time Stop Time Status Last Admin Dose Admin (Suboxone 8MG-2MG SL film) 1 film ONCE STAT SL 06/13/25 15:59 06/13/25 16:04 DC 06/13/25 16:15 1 FILM Vital Signs 06/13/25 06/13/25 13:26 16:09 Temp 98.6 Pulse 83 74 Resp 18 16 B/P (MAP) 163/94 148/87 Pulse Ox 98 99 Medical Decision Making Additional info obtained from: old records Findings She has plans to call the [facility] 1st thing Sunday but just need s help getting through the weekend. By gave a 1 time dose here in the department as well as a prescription for to films as she takes them twice a day for tomorrow to get her through till Sunday. I discussed this case with Dr. Arias who recommends that this would be appropriate since it is the weekend and the Suboxone clinic is closed. She should follow up as directed at the Suboxone clinic Sunday and return back here for any new or worsening symptoms. Differential Dx:Considerations: Include: Adverse circumstances, Economic, Medication refill, Medication non-compliance Departure Disposition: 01 HOME / SELF CARE / HOMELESS Impression: Primary Impression: Encounter for medication refill Condition: Stable Discharge Instructions: Medicine Refill at the Emergency Department Additional Instructions: Please follow up with the Sub[facility]one Clinic 1st thing Sunday. I have given you 1 dose while here in the department and a prescription for 2 doses to take for tomorrow. Referrals: NO PRIMARY CARE PROVIDER (PCP) Prescriptions Buprenorphine Hcl/Naloxone Hcl (Suboxone 8 Mg-2 Mg Sl Film) 8 Mg-2 Mg Film 1 STRIP SL BID for 1 Day, #2 STRIP Prov: DEIRDRE RIVER 06/13/25 Education Educated: Patient Educated regarding: diagnosis, treatment, prognosis, need for follow up Additional Comment Medical Screen Exam This patient recieved a medical screening examination. After reviewing the individual's medical complaints with presenting symptoms and performing an appropriate physical examination, it was determined that no immediate life- threatening emergency medical condition is present. This individual is also not a women having contractions. Signature Scribe Signature: . Attestation: Scribed for Deirdre River Nurse Infection Control by Deirdre Sorto NP . 06/13/25 18:21 Parts of this note were created using [employer] voice recognition software program. While efforts were made to correct any mistakes made by this voice recognition software program, nonsensical phrases may remain in this note. In addition, there may be errors and syntax, grammar, content and spelling. DEIRDRE RIVER [facility] Jun 13, 2025 15:58
[2025-06-13 16:09] VITALS: BP 148/87; PULSE 74; RESP 16; O2SAT 99
[2025-06-13] MEDS: buprenorphine/naloxone 8MG-2MG SUBlingual film SL STA (16:15)
== END 2025-06-13 16:19 | disposition home or self-care (01) ==
LOC: ER 13:25
DX: Z76.0 Encounter for issue of repeat prescription (principal); Z90.710 Acquired absence of both cervix and uterus
CPT/HCPCS: 99283; A6449